=== PATIENT | male | born 1975 | race Caucasian/White ===

== ENCOUNTER 2018-02-28 15:16 | Emergency (ER) | payer OTHER ==
[~2018-02-28] VITALS: Ht 160 cm; Wt 127.3 kg
[2018-02-28] MEDS ORDERED: GABA-533 PO (15:55)
[2018-02-28] MEDS ORDERED: FURO40 PO (15:55)
[2018-02-28] MEDS ORDERED: DULO60CA44 PO (15:55)
[2018-02-28] MEDS ORDERED: LORA1TAB3 PO (15:55)
[2018-02-28] MEDS ORDERED: ARIP15TA2 PO (15:55)
[2018-02-28] MEDS ORDERED: LACT1CAP79 PO (15:55)
[2018-02-28] MEDS ORDERED: OXYB5XL PO (15:55)
[2018-02-28] MEDS ORDERED: TRAZ-144 PO (15:55)
[2018-02-28] MEDS ORDERED: TIZA4TAB4 PO (15:55)
[2018-02-28] MEDS ORDERED: CEPH500 PO (15:55)
[2018-02-28] MEDS ORDERED: DIVA500T35 PO (15:55)
[2018-02-28] MEDS ORDERED: BUPR-93 PO (15:55)
[2018-02-28 17:22] VITALS: BP 126/104
== END 2018-02-28 17:38 | disposition home or self-care (01) ==
LOC: EMS 15:17
DX: F32.9 Major depressive disorder, single episode, unspecified (principal); R45.851 Suicidal ideations; G89.29 Other chronic pain; F17.210 Nicotine dependence, cigarettes, uncomplicated; Z88.1 Allergy status to other antibiotic agents; Z88.2 Allergy status to sulfonamides; Z88.5 Allergy status to narcotic agent; Z88.6 Allergy status to analgesic agent
CPT/HCPCS: 99285

== ENCOUNTER 2018-03-22 21:28 | Emergency (ER) | payer MEDICAID, OTHER ==
[~2018-03-22] VITALS: Ht 177.8 cm; Wt 100.0 kg
[~2018-03-22 21:28] MED LIST: ARIP15TA2 PO; ARIP5TAB8 PO; BUPR-93 PO; CEPH500 PO; DIVA500T35 PO; DULO60CA44 PO; FURO40 PO; GABA-531 PO; GABA-533 PO; LACT1CAP79 PO; LORA1TAB3 PO; OMEP20 PO; OXYB5XL PO; TIZA4TAB4 PO; TRAZ-144 PO
[2018-03-22] MEDS ORDERED: BACITRACIN 0.9 GM PACKET OINTMENT TP ONE (22:45)
[2018-03-23 02:18] VITALS: BP 114/70
== END 2018-03-23 03:50 | disposition home or self-care (01) ==
LOC: EMS 21:29
DX: F43.22 Adjustment disorder with anxiety (principal); S90.424A Blister (nonthermal), right lesser toe(s), initial encounter; F32.9 Major depressive disorder, single episode, unspecified; F17.210 Nicotine dependence, cigarettes, uncomplicated; Z88.2 Allergy status to sulfonamides; Z88.5 Allergy status to narcotic agent; Z88.6 Allergy status to analgesic agent; Z88.8 Allergy status to other drugs, medicaments and biological substances; X58.XXXA Exposure to other specified factors, initial encounter; Y93.89 Activity, other specified; Y92.89 Other specified places as the place of occurrence of the external cause; Y99.8 Other external cause status
CPT/HCPCS: 99285

== ENCOUNTER 2020-10-31 17:05 | Emergency (ER) | payer OTHER ==
[~2020-10-31] VITALS: Ht 160 cm; Wt 86.4 kg
[~2020-10-31 17:05] MED LIST changes: +DIVA-112 PO; -DIVA500T35 PO; +DULO-8 PO; -DULO60CA44 PO; +GABA-1181 PO; +GABA-1201 PO; -GABA-531 PO; -GABA-533 PO; +LORA-1000 PO; -LORA1TAB3 PO; -TIZA4TAB4 PO; +TIZA4TAB6 PO; -TRAZ-144 PO; +TRAZ-252 PO
[2020-10-31 17:41] VITALS: BP 110/58
[2020-10-31] MEDS ORDERED: FentaNYL CITRATE-PF 100 MCG/2 ML VIAL IM ONE (18:45)
== END 2020-10-31 22:09 | disposition home or self-care (01) ==
LOC: EMS 17:06
DX: Q05.9 Spina bifida, unspecified (principal); F32.9 Major depressive disorder, single episode, unspecified; F17.210 Nicotine dependence, cigarettes, uncomplicated; Z88.2 Allergy status to sulfonamides; Z88.5 Allergy status to narcotic agent; Z79.899 Other long term (current) drug therapy
CPT/HCPCS: 96372; 99285; J3010

== ENCOUNTER 2024-09-10 11:08 | Emergency (ER) | payer OTHER ==
[~2024-09-10] VITALS: Ht 154.9 cm; Wt 65.9 kg
[~2024-09-10 11:08] MED LIST changes: -ARIP15TA2 PO; +ARIP15TA27 PO; -ARIP5TAB8 PO; +BUPR-514 PO; -BUPR-93 PO; -CEPH500 PO; +DULO-113 PO; -DULO-8 PO; -FURO40 PO; +FURO40TA6 PO; -GABA-1181 PO; -OMEP20 PO; +OXYB-34 PO; -OXYB5XL PO; +TIZA-330 PO; -TIZA4TAB6 PO
[2024-09-10 11:20] VITALS: TEMP 97.8
[2024-09-10] MEDS ORDERED: GABA-1554 PO (11:24)
[2024-09-10] MEDS ORDERED: POLY510P31 PO (11:24)
[2024-09-10] MEDS ORDERED: DOCU100C33 PO (11:24)
[2024-09-10] MEDS ORDERED: CALC-1271 PO (11:24)
[2024-09-10] MEDS ORDERED: QUET100T34 PO (11:24)
[2024-09-10] MEDS ORDERED: WHEA1POW2 PO (11:24)
[2024-09-10] MEDS ORDERED: BACL20TA PO (11:24)
[2024-09-10] MEDS ORDERED: ARIP5TAB37 PO (11:24)
[2024-09-10] MEDS ORDERED: SENN-395 PO (11:24)
[2024-09-10] MEDS ORDERED: ARIP20TA63 PO (11:24)
[2024-09-10] MEDS ORDERED: MELA5TAB40 PO (11:24)
[2024-09-10 13:37] LABS: ANION GAP 1 mmol/L (8-16); CALCIUM, TOTAL 7.9 mg/dL (8.8-10.5); CARBON DIOXIDE 31 mmol/L (22-29); CHLORIDE 104 mmol/L (98-107); CREATININE 0.74 mg/dL (0.60-1.30); GLOMERULAR FILTR. RATE CALC > 60 mL/min (>60); GLUCOSE,RANDOM 160 mg/dL (70-110); POTASSIUM 3.3 mmol/L (3.5-5.1); SODIUM SERUM 136 mmol/L (136-145); UREA NITROGEN, BLOOD 17 mg/dL (7-18)
[2024-09-10 13:44] LABS: BASOPHILS % (AUTO) 0.5 % (0.0-2.0); EOSINOPHILS % (AUTO) 2.2 % (1.0-6.0); HEMATOCRIT 41.8 % (41-53); HEMOGLOBIN 13.5 g/dL (13.5-17.5); LYMPHOCYTES # (AUTO) 2.1 K/uL (1.0-4.8); LYMPHOCYTES % (AUTO) 43.7 % (22.0-44.0); MEAN CORPUSCULAR HGB CONC 32.3 G/dL (31.0-37.0); MEAN CORPUSCULAR VOLUME 96 fL (80-100); MONOCYTES # (AUTO) 0.3 K/uL (0.1-1.0); NEUTROPHILS # (AUTO) 2.3 K/uL (1.8-7.7); NEUTROPHILS % (AUTO) 46.6 % (40.0-70.0); PLATELET COUNT (AUTO) 200 K/uL (150-450); RED BLOOD CELL COUNT(AUTO) 4.35 MIL/uL (4.50-5.90); RED CELL DISTRIBUTION WIDTH 14.4 % (11.5-14.5); WHITE BLOOD COUNT (AUTO) 4.8 K/uL (4.5-11.0)
[2024-09-10 14:38] LABS: APPEARANCE,URINE HAZY (CLEAR); BILIRUBIN,URINE NEGATIVE (NEGATIVE); COLOR,URINE LIGHT YELLOW (YELLOW); GLUCOSE, URINE (UA) NEGATIVE (NEGATIVE); KETONES,URINE NEGATIVE (NEGATIVE); LEUKOCYTE ESTERASE ,URINE SMALL (NEGATIVE); NITRATE,URINE NEGATIVE (NEGATIVE); OCCULT BLOOD,URINE NEGATIVE (NEGATIVE); PH,URINE 5.5 (5.0-8.0); PROTEIN,URINE TRACE mg/dL (NEGATIVE); SPECIFIC GRAVITIY, URINE 1.013 (1.003-1.030)
[2024-09-10 15:25] LABS: BACTERIA,URINE Many /HPF (None Seen); RBC,URINE 0-2 /HPF (0-2); SQUAMOUS EPITHELIAL CELL,UR Few /LPF (None Seen)
[2024-09-10] MEDS ORDERED: CEFU500T41 PO (15:56)
[2024-09-10] MEDS: POTASSIUM CHLORIDE 20 MEQ ER TABLET PO ONE (16:20)
[2024-09-10] MEDS: CEFUROXIME AXETIL 250 MG TABLET PO ONE (16:20)
[2024-09-10 16:28] VITALS: BP 110/69; PULSE 88; RESP 18; O2SAT 99
== END 2024-09-10 16:38 | disposition home or self-care (01) ==
LOC: EMS 11:08
DX: N30.90 Cystitis, unspecified without hematuria (principal); E87.6 Hypokalemia; E11.9 Type 2 diabetes mellitus without complications; F17.210 Nicotine dependence, cigarettes, uncomplicated; F31.9 Bipolar disorder, unspecified; G47.30 Sleep apnea, unspecified; Q05.9 Spina bifida, unspecified; Z88.1 Allergy status to other antibiotic agents; Z88.2 Allergy status to sulfonamides; Z88.5 Allergy status to narcotic agent; Z88.6 Allergy status to analgesic agent; Z87.440 Personal history of urinary (tract) infections; Z79.899 Other long term (current) drug therapy
CPT/HCPCS: 80048; 81001; 82962; 85025; 87086; 99283

== ENCOUNTER 2024-11-23 05:15 | Emergency (ER) | payer OTHER ==
[~2024-11-23] VITALS: Ht 160 cm; Wt 104.5 kg
[~2024-11-23 05:15] MED LIST changes: -ARIP15TA27 PO; +ARIP20TA63 PO; +ARIP5TAB37 PO; +BACL20TA PO; -BUPR-514 PO; +CALC-1271 PO; +DOCU100C33 PO; -GABA-1201 PO; +GABA-1554 PO; -LACT1CAP79 PO; -LORA-1000 PO; +MELA5TAB40 PO; -OXYB-34 PO; +POLY510P31 PO; +SENN-395 PO; +SULF-261 PO; -TIZA-330 PO; -TRAZ-252 PO; +WHEA1POW2 PO
[2024-11-23 05:19] VITALS: TEMP 98.3
[2024-11-23] MEDS: LIDOCAINE/PF 1% 2 ML VIAL IM ONE (06:36)
[2024-11-23] MEDS: CefTRIAXone SODIUM 1 GM/VIAL IM ONE (06:36)
[2024-11-23 07:42] LABS: APPEARANCE,URINE TURBID (CLEAR); BILIRUBIN,URINE NEGATIVE (NEGATIVE); COLOR,URINE YELLOW (YELLOW); GLUCOSE, URINE (UA) NEGATIVE (NEGATIVE); KETONES,URINE TRACE mg/dL (NEGATIVE); LEUKOCYTE ESTERASE ,URINE LARGE (NEGATIVE); NITRATE,URINE NEGATIVE (NEGATIVE); OCCULT BLOOD,URINE MODERATE (NEGATIVE); PROTEIN,URINE 300-600,SEE CONFIRM mg/dL (NEGATIVE); SPECIFIC GRAVITIY, URINE 1.031 (1.003-1.030)
[2024-11-23 07:55] LABS: SULFOSALICYLIC ACID,URINE 4+ (Negative); TRIPLE PHOSPHATE CRYSTAL,UR Few /LPF (None Seen)
[2024-11-23 07:56] LABS: WBC,URINE 51-100 /HPF (0-5)
[2024-11-23 07:57] LABS: BACTERIA,URINE Many /HPF (None Seen)
[2024-11-23 08:52] VITALS: BP 108/67; PULSE 87; RESP 18; O2SAT 99
[2024-11-23] MEDS ORDERED: NYST15PO3 TP (09:09)
[2024-11-23] MEDS ORDERED: CEPH-558 PO (09:09)
[2024-11-23] MEDS: CefTRIAXone 1 GM/DEXTROSE 50 ML IV ONE (09:17)
== END 2024-11-23 09:43 | disposition left against medical advice (07) ==
LOC: EMS 05:15
DX: N39.0 Urinary tract infection, site not specified (principal); E11.9 Type 2 diabetes mellitus without complications; G47.30 Sleep apnea, unspecified; G89.29 Other chronic pain; Q05.9 Spina bifida, unspecified; F17.210 Nicotine dependence, cigarettes, uncomplicated; Z87.440 Personal history of urinary (tract) infections; Z88.1 Allergy status to other antibiotic agents; Z88.2 Allergy status to sulfonamides; Z88.5 Allergy status to narcotic agent; Z88.6 Allergy status to analgesic agent
CPT/HCPCS: 99283; 81001; 87086; 96372; J0696; J3490; 81002

== ENCOUNTER 2025-06-16 12:03 | Inpatient (IN) | payer OTHER ==
[~2025-06-16] VITALS: Ht 160 cm; Wt 90.3 kg
[~2025-06-16 12:03] MED LIST changes: +CEPH-558 PO; -DULO-113 PO; +DULO60CA98 PO; +NYST15PO3 TP
[2025-06-16] MEDS ORDERED: 0.9% SODIUM CHLORIDE 10 ML SYRINGE IVP PRN (12:30)
[2025-06-16] MEDS ORDERED: QUET200T PO (12:30)
[2025-06-16] MEDS ORDERED: ARIP15TA27 PO (12:30)
[2025-06-16] MEDS ORDERED: METH1TAB66 PO (12:30)
[2025-06-16] MEDS ORDERED: QUET100T34 PO (12:38)
[2025-06-16] MEDS ORDERED: NYST15CR TP (12:38)
[2025-06-16 13:11] LABS: PLATELET COUNT (AUTO) 179 K/uL (150-450); RED BLOOD CELL COUNT(AUTO) 4.59 MIL/uL (4.50-5.90); RED CELL DISTRIBUTION WIDTH 13.5 % (11.5-14.5); WHITE BLOOD COUNT (AUTO) 13.0 K/uL (4.5-11.0)
[2025-06-16] MEDS: SODIUM CHLORIDE 0.9% 2,100 ML IV ONE (13:16)
[2025-06-16 13:19] LABS: CALCIUM, TOTAL 8.2 mg/dL (8.8-10.5); CREATININE 1.18 mg/dL (0.60-1.30); GLOMERULAR FILTR. RATE CALC > 60 mL/min (>60); GLUCOSE,RANDOM 104 mg/dL (70-110); SODIUM SERUM 133 mmol/L (136-145); UREA NITROGEN, BLOOD 22 mg/dL (7-18)
[2025-06-16] MEDS: CefTRIAXone 1 GM/DEXTROSE 50 ML IV ONE (13:24)
[2025-06-16] MEDS: BACITRACIN 0.9 GM PACKET OINTMENT TP ONE (13:24)
[2025-06-16] MEDS: PERTUSS(ACELL),DIPH,TET/PF 0.5 ML SYRINGE [ADULT] IM. ONE (13:24)
[2025-06-16 13:29] LABS: TROPONIN I-HIGH SENSITIVITY 57 ng/L (<76)
[2025-06-16 14:06] LABS: LACTIC ACID 1.3 mmol/L (0.4-2.0)
[2025-06-16] MEDS ORDERED: HYDROCODONE/ACETAMINOPHEN 5-325 MG TABLET PO ONE (14:45)
[2025-06-16 15:15] LABS: APPEARANCE,URINE TURBID (CLEAR); GLUCOSE, URINE (UA) NEGATIVE (NEGATIVE); LEUKOCYTE ESTERASE ,URINE LARGE (NEGATIVE); NITRATE,URINE NEGATIVE (NEGATIVE); OCCULT BLOOD,URINE LARGE (NEGATIVE); SPECIFIC GRAVITIY, URINE 1.024 (1.003-1.030)
[2025-06-16] MEDS: ACETAMINOPHEN 500 MG TABLET PO ONE (15:17)
[2025-06-16 15:59] LABS: SULFOSALICYLIC ACID,URINE 3+ (Negative)
[2025-06-16 16:02] LABS: SQUAMOUS EPITHELIAL CELL,UR Few /LPF (None Seen)
[2025-06-16 16:16] LABS: GLUCOMETER DEV NAME(LOC) ERT.7; GLUCOSE,POINT OF CARE 100 MG/DL (70-110)
[2025-06-16] MEDS ORDERED: MAGNESIUM HYDROXIDE SUSPENSION 30 ML UDCUP PO PRN (16:45)
[2025-06-16] MEDS ORDERED: BISACODYL 10 MG RECTAL RECTAL SUPPOSITORY PR PRN (16:45)
[2025-06-16] MEDS ORDERED: ONDANSETRON HCL 4 MG/2 ML VIAL IVP PRN (16:45)
[2025-06-16] MEDS: *CLINICAL-LEVOFLOXACIN IVPB DOSING CLINICAL ONE (16:59)
[2025-06-16] MEDS: SODIUM CHLORIDE 0.9% 1,000 ML IV ONE ×3 (17:04→18:13)
[2025-06-16] MEDS ORDERED: NOREPINEPHRINE 8 MG/0.9 % NACL 250 ML IV ONE (17:59)
[2025-06-16] MEDS ORDERED: NOREPINEPHRINE 8 MG/0.9 % NACL 250 ML IV PRN (18:00)
[2025-06-16] MEDS: NOREPINEPHRINE 8 MG/0.9 % NACL 250 ML IV PRN (18:08)
[2025-06-16] MEDS: DOCUSATE SODIUM 100 MG CAPSULE PO SCH (20:20)
[2025-06-16 21:00] VITALS: BP 104/66; PULSE 83; PULSE 89; RESP 16; TEMP 97.4; O2SAT 95
[2025-06-17] VITALS: BP 100/64; PULSE 75; PULSE 79; RESP 16; TEMP 97.6; O2SAT 97
[2025-06-17] MEDS: HEPARIN SODIUM,PORCINE 5,000 UNITS/ML VIAL SQ SCH (00:17)
[2025-06-17] MEDS: ACETAMINOPHEN 325 MG TABLET PO PRN (01:03)
[2025-06-17 04:00] VITALS: BP 100/64; PULSE 85; PULSE 87; RESP 16; TEMP 97.6; O2SAT 95
[2025-06-17] MEDS: MIDODRINE HCL 2.5 MG TABLET PO SCH (07:18)
[2025-06-17] MEDS: KETOROLAC TROMETHAMINE 30 MG/ML VIAL IVP ONE (07:18)
[2025-06-17] MEDS: PIPERACILLIN/TAZO 3.375 GM/D5W 50 ML IV SCH (07:19)
[2025-06-17] MEDS ORDERED: SODIUM CHLORIDE 0.9% 250 ML IV ONE (07:43)
[2025-06-17 08:00] VITALS: BP 115/63; PULSE 93; RESP 12; TEMP 97.1; O2SAT 92
[2025-06-17 08:59] LABS: PLATELET COUNT (AUTO) 153 K/uL (150-450); RED BLOOD CELL COUNT(AUTO) 4.13 MIL/uL (4.50-5.90); RED CELL DISTRIBUTION WIDTH 13.8 % (11.5-14.5); WHITE BLOOD COUNT (AUTO) 9.8 K/uL (4.5-11.0)
[2025-06-17 09:06] LABS: CALCIUM, TOTAL 7.1 mg/dL (8.8-10.5); CREATININE 0.74 mg/dL (0.60-1.30); GLOMERULAR FILTR. RATE CALC > 60 mL/min (>60); GLUCOSE,RANDOM 80 mg/dL (70-110); SODIUM SERUM 137 mmol/L (136-145); UREA NITROGEN, BLOOD 18 mg/dL (7-18)
[2025-06-17] MEDS: PANTOPRAZOLE SODIUM 40 MG DR TABLET PO SCH (09:07)
[2025-06-17] MEDS: LEVOFLOXACIN 750 MG/D5% WATER 150 ML IV SCH (09:07)
[2025-06-17 12:00] LABS: GLUCOMETER DEV NAME(LOC) ICUN.6; GLUCOSE,POINT OF CARE 82 MG/DL (70-110)
[2025-06-17 12:42] VITALS: BP 97/70; PULSE 82; RESP 17; TEMP 97.5; O2SAT 96
[2025-06-17 12:46] LABS: PH,URINE DRUG SCREEN 7.0 (5.0-8.0)
[2025-06-17 12:59] LABS: ALCOHOL, URINE DRUG SCREEN NEGATIVE (NEGATIVE); AMPHET/METH SCREEN,URINE NEGATIVE (NEGATIVE); BARBITURATE SCREEN, URINE NEGATIVE (NEGATIVE); CANNABINOID SCREEN,URINE NEGATIVE (NEGATIVE); COCAINE SCREEN,URINE NEGATIVE (NEGATIVE); METHADONE SCREEN, URINE NEGATIVE (NEGATIVE)
[2025-06-17] MEDS ORDERED: SODIUM CHLORIDE 0.9% 500 ML IV ONE (13:02)
[2025-06-17] MEDS: MORPHINE SULFATE 2 MG/ML SYRINGE IVP PRN (14:45)
[2025-06-17 15:33] VITALS: BP 109/85; PULSE 82; RESP 18; TEMP 98.2; O2SAT 97
[2025-06-17 20:22] VITALS: BP 96/64; PULSE 93; RESP 18; TEMP 97.7; O2SAT 97
[2025-06-18 00:11] VITALS: BP 96/55; PULSE 101; RESP 18; TEMP 97.7; O2SAT 95
[2025-06-18 03:24] VITALS: BP 92/61; PULSE 94; RESP 18; TEMP 97.7; O2SAT 97
[2025-06-18 07:55] VITALS: BP 133/79; PULSE 110; RESP 19; TEMP 97.7; O2SAT 98
[2025-06-18 09:52] LABS: PLATELET COUNT (AUTO) 169 K/uL (150-450); RED BLOOD CELL COUNT(AUTO) 4.21 MIL/uL (4.50-5.90); RED CELL DISTRIBUTION WIDTH 13.5 % (11.5-14.5); WHITE BLOOD COUNT (AUTO) 5.9 K/uL (4.5-11.0)
[2025-06-18 09:57] LABS: CALCIUM, TOTAL 7.7 mg/dL (8.8-10.5); CREATININE 0.76 mg/dL (0.60-1.30); GLOMERULAR FILTR. RATE CALC > 60 mL/min (>60); GLUCOSE,RANDOM 115 mg/dL (70-110); SODIUM SERUM 142 mmol/L (136-145); UREA NITROGEN, BLOOD 10 mg/dL (7-18)
[2025-06-18] MEDS: GABAPENTIN 400 MG CAPSULE PO PRN (10:52)
[2025-06-18] MEDS: DULoxetine HCL 60 MG CAPSULE PO SCH (10:52)
[2025-06-18 13:25] VITALS: BP 125/75; PULSE 119; RESP 18; TEMP 98.2; O2SAT 97
[2025-06-18] MEDS: BACLOFEN 10 MG TABLET PO SCH (14:53)
[2025-06-18 19:58] VITALS: BP 109/75; PULSE 95; RESP 18; TEMP 98.1; O2SAT 96
[2025-06-18] MEDS: ZOLPIDEM TARTRATE 5 MG TABLET PO PRN (22:57)
[2025-06-19 00:14] VITALS: BP 125/75; PULSE 77; RESP 17; TEMP 97.3; O2SAT 95
[2025-06-19 03:32] VITALS: BP 102/62; PULSE 75; RESP 18; TEMP 97.7; O2SAT 97
[2025-06-19 06:40] LABS: PLATELET COUNT (AUTO) 177 K/uL (150-450); RED BLOOD CELL COUNT(AUTO) 3.55 MIL/uL (4.50-5.90); RED CELL DISTRIBUTION WIDTH 13.7 % (11.5-14.5); WHITE BLOOD COUNT (AUTO) 5.1 K/uL (4.5-11.0)
[2025-06-19 08:37] VITALS: BP 103/74; PULSE 87; RESP 18; TEMP 97.8; O2SAT 95
[2025-06-19] MEDS: NICOTINE 14 MG/24 HOUR PATCH TD SCH (08:48)
[2025-06-19 11:50] VITALS: BP 93/69; PULSE 98; RESP 18; TEMP 98; O2SAT 97
[2025-06-19] MEDS ORDERED: AMOX-457 PO (13:49)
[2025-06-19 16:07] VITALS: BP 97/67; PULSE 83; RESP 18; TEMP 98; O2SAT 96
== END 2025-06-19 18:45 | disposition home or self-care (01) | DRG 720 ==
LOC: EMS 12:07 → EDH 16:00 → ICU 21:00 → 5N 06-17 12:20
PROVIDERS: ADMIT Internal Medicine; ATTEND Internal Medicine
DX: A41.9 Sepsis, unspecified organism (principal); J96.01 Acute respiratory failure with hypoxia; J69.0 Pneumonitis due to inhalation of food and vomit; G93.41 Metabolic encephalopathy; G82.20 Paraplegia, unspecified; N31.2 Flaccid neuropathic bladder, not elsewhere classified; F31.9 Bipolar disorder, unspecified; G89.29 Other chronic pain; E11.65 Type 2 diabetes mellitus with hyperglycemia; F17.210 Nicotine dependence, cigarettes, uncomplicated; G47.33 Obstructive sleep apnea (adult) (pediatric); E78.5 Hyperlipidemia, unspecified; L03.115 Cellulitis of right lower limb; Z87.440 Personal history of urinary (tract) infections; Z88.3 Allergy status to other anti-infective agents; Z88.2 Allergy status to sulfonamides; Z88.6 Allergy status to analgesic agent; Z88.5 Allergy status to narcotic agent; Z79.899 Other long term (current) drug therapy; Q05.9 Spina bifida, unspecified
CPT/HCPCS: 51701; 51702; 71045; 80048; 80307; 81001; 81002; 82962; 83036; 83605; 84145; 84484; 85025; 85610; 87040; 87081; 87086; 90715; 92610; 93005; 93971; 97162; 99291; J0696; J1630; J1644; J1885; J1956; J2270; J2543; J7040; J7050; 36415-L1; 36415-TC

== ENCOUNTER 2025-08-13 11:40 | Inpatient (IN) | payer OTHER ==
[~2025-08-13] VITALS: Ht 160 cm; Wt 97.7 kg
[~2025-08-13 11:40] MED LIST changes: +AMOX-457 PO; +ARIP15TA27 PO; -ARIP20TA63 PO; -ARIP5TAB37 PO; -CEPH-558 PO; -DIVA-112 PO; +DULO60CA73 PO; -DULO60CA98 PO; +METH1TAB66 PO; +NYST15CR TP; -NYST15PO3 TP; +QUET100T34 PO; -SULF-261 PO
[2025-08-13 12:25] LABS: GLUCOMETER DEV NAME(LOC) ER.7; GLUCOSE,POINT OF CARE 127 MG/DL (70-110)
[2025-08-13 12:57] LABS: PLATELET COUNT (AUTO) 211 K/uL (150-450); RED BLOOD CELL COUNT(AUTO) 4.49 MIL/uL (4.50-5.90); RED CELL DISTRIBUTION WIDTH 13.0 % (11.5-14.5); WHITE BLOOD COUNT (AUTO) 6.3 K/uL (4.5-11.0)
[2025-08-13 13:04] LABS: CALCIUM, TOTAL 8.6 mg/dL (8.8-10.5); CREATININE 0.70 mg/dL (0.60-1.30); GLOMERULAR FILTR. RATE CALC > 60 mL/min (>60); GLUCOSE,RANDOM 122 mg/dL (70-110); SODIUM SERUM 135 mmol/L (136-145); UREA NITROGEN, BLOOD 13 mg/dL (7-18)
[2025-08-13 13:13] LABS: LACTIC ACID 0.7 mmol/L (0.4-2.0)
[2025-08-13 13:22] LABS: ASPARTATE AMINOTRANSFERASE 131.0 U/L (15-37); TOTAL PROTEIN, SERUM 7.7 g/dL (6.4-8.2)
[2025-08-13] MEDS: *CLINICAL-MEROPENEM DOSING CLINICAL ONE (13:28)
[2025-08-13] MEDS ORDERED: MORPHINE SULFATE 2 MG/ML SYRINGE IVP ONE (14:15)
[2025-08-13] MEDS: ACETAMINOPHEN 500 MG TABLET PO ONE (14:28)
[2025-08-13] MEDS: SODIUM CHLORIDE 0.9% 1,000 ML IV ONE (14:29)
[2025-08-13] MEDS: MEROPENEM 1 GM in SODIUM CHLORIDE 0.9% 50 ML IV ONE (14:29)
[2025-08-13 14:39] LABS: APPEARANCE,URINE CLEAR (CLEAR); GLUCOSE, URINE (UA) NEGATIVE (NEGATIVE); LEUKOCYTE ESTERASE ,URINE MODERATE (NEGATIVE); NITRATE,URINE POSITIVE (NEGATIVE); OCCULT BLOOD,URINE TRACE (NEGATIVE); SPECIFIC GRAVITIY, URINE 1.009 (1.003-1.030)
[2025-08-13] MEDS ORDERED: ONDANSETRON HCL 4 MG/2 ML VIAL IVP PRN (17:00)
[2025-08-13 20:21] VITALS: BP 114/87; PULSE 96; RESP 18; TEMP 98.1; O2SAT 95
[2025-08-13] MEDS: DOCUSATE SODIUM 100 MG CAPSULE PO SCH (21:17)
[2025-08-13] MEDS: ACETAMINOPHEN 325 MG TABLET PO PRN (21:35)
[2025-08-13] MEDS: PIPERACILLIN/TAZO 3.375 GM/D5W 50 ML IV SCH (21:52)
[2025-08-13] MEDS ORDERED: MEROPENEM 1 GM in SODIUM CHLORIDE 0.9% 50 ML IV SCH (22:00)
[2025-08-13] MEDS ORDERED: SENNOSIDES/DOCUSATE SODIUM 8.6-50 MG TABLET PO PRN (23:00)
[2025-08-13 23:31] LABS: GLUCOMETER DEV NAME(LOC) 6S.2; GLUCOSE,POINT OF CARE 94 MG/DL (70-110)
[2025-08-13] MEDS ORDERED: GABAPENTIN 100 MG CAPSULE PO PRN (23:45)
[2025-08-13] MEDS: HEPARIN SODIUM,PORCINE 5,000 UNITS/ML VIAL SQ SCH (23:52)
[2025-08-13] MEDS: GABAPENTIN 400 MG CAPSULE PO PRN (23:53)
[2025-08-13] MEDS: MELATONIN 5 MG TABLET PO PRN (23:53)
[2025-08-14 04:06] VITALS: BP 113/78; PULSE 85; RESP 18; TEMP 97.5; O2SAT 97
[2025-08-14 06:24] LABS: PLATELET COUNT (AUTO) 217 K/uL (150-450); RED BLOOD CELL COUNT(AUTO) 4.28 MIL/uL (4.50-5.90); RED CELL DISTRIBUTION WIDTH 13.2 % (11.5-14.5); WHITE BLOOD COUNT (AUTO) 5.3 K/uL (4.5-11.0)
[2025-08-14 06:43] LABS: CALCIUM, TOTAL 8.0 mg/dL (8.8-10.5); CREATININE 0.70 mg/dL (0.60-1.30); GLOMERULAR FILTR. RATE CALC > 60 mL/min (>60); GLUCOSE,RANDOM 86 mg/dL (70-110); SODIUM SERUM 140 mmol/L (136-145); UREA NITROGEN, BLOOD 14 mg/dL (7-18)
[2025-08-14 08:00] LABS: GLUCOMETER DEV NAME(LOC) 6S.2; GLUCOSE,POINT OF CARE 102 MG/DL (70-110)
[2025-08-14] MEDS: FUROSEMIDE 40 MG TABLET PO SCH (08:16)
[2025-08-14] MEDS: METHENAMINE HIPPURATE 1 GM TABLET PO SCH (08:16)
[2025-08-14] MEDS: BACLOFEN 10 MG TABLET PO SCH (08:16)
[2025-08-14] MEDS: DULoxetine HCL 60 MG CAPSULE PO SCH (08:16)
[2025-08-14 08:20] VITALS: BP 99/72; PULSE 81; RESP 18; TEMP 97.7; O2SAT 95
[2025-08-14] MEDS ORDERED: SODIUM CHLORIDE 0.9% 500 ML IV ONE ×2 (10:20→23:24)
[2025-08-14 15:56] VITALS: BP 127/87; PULSE 92; RESP 18; TEMP 97.7; O2SAT 97
[2025-08-14 20:27] VITALS: BP 92/58; PULSE 72; RESP 18; TEMP 97.5; O2SAT 94
[2025-08-14] MEDS ORDERED: NALOXONE HCL 1 MG/ML 2 ML SYRINGE IVP PRN (20:30)
[2025-08-15 00:04] VITALS: BP 109/71; PULSE 101; RESP 20; TEMP 97.9; O2SAT 100
[2025-08-15] MEDS: MELATONIN 5 MG TABLET PO SCH (00:09)
[2025-08-15 04:15] VITALS: BP 126/91; PULSE 110; RESP 18; TEMP 98.4; O2SAT 93
[2025-08-15 08:00] VITALS: BP 115/82; PULSE 90; RESP 18; TEMP 97.7; O2SAT 98
[2025-08-15] MEDS: NICOTINE 14 MG/24 HOUR PATCH TD SCH (10:40)
[2025-08-15 15:17] VITALS: BP 106/78; PULSE 114; RESP 18; TEMP 98.1; O2SAT 99
[2025-08-15 20:00] VITALS: BP 105/72; PULSE 105; RESP 20; TEMP 98.2; O2SAT 96
[2025-08-16 04:51] VITALS: BP 106/75; PULSE 85; RESP 18; TEMP 98.2; O2SAT 93
[2025-08-16 08:16] VITALS: BP 100/60; PULSE 80; RESP 20; TEMP 97.9; O2SAT 20; O2SAT 98
[2025-08-16 11:14] VITALS: BP 102/68; PULSE 84; RESP 20; TEMP 97.9; O2SAT 97
[2025-08-16] MEDS: *CLINICAL-MEROPENEM DOSING CLINICAL ONE (12:58)
[2025-08-16] MEDS: MEROPENEM 1 GM in SODIUM CHLORIDE 0.9% 50 ML IV SCH (15:25)
[2025-08-16 15:42] VITALS: BP 96/54; PULSE 86; RESP 20; TEMP 97.9; O2SAT 94
[2025-08-16 20:00] VITALS: BP 103/67; PULSE 100; RESP 20; TEMP 97.5; O2SAT 96
[2025-08-17 04:00] VITALS: BP 101/70; PULSE 87; RESP 20; TEMP 97.3; O2SAT 97
[2025-08-17 08:00] VITALS: BP 120/88; PULSE 124; RESP 20; TEMP 97.7; O2SAT 95
[2025-08-17 12:28] VITALS: BP 107/81; PULSE 121; RESP 18; O2SAT 94
[2025-08-17] MEDS ORDERED: IOHEXOL 350 MG/ML 100 ML VIAL ONE (15:18)
[2025-08-17] MEDS ORDERED: SODIUM CHLORIDE 0.9% 100 ML ONE (15:18)
[2025-08-17] MEDS ORDERED: 0.9% SODIUM CHLORIDE 10 ML SYRINGE IVP ONE (15:18)
[2025-08-17 16:00] VITALS: BP 100/67; PULSE 98; RESP 20; TEMP 97.5; O2SAT 96
== END 2025-08-17 21:21 | DRG 466 ==
LOC: EMS 11:44 → EDH 16:46 → 6S 19:03
PROVIDERS: ADMIT Internal Medicine; ATTEND Internal Medicine
PROC: 05HC33Z Insertion of Infusion Device into Left Basilic Vein, Percutaneous Approach (ICD-10-PCS; principal; 2025-08-16)
PROC: B54NZZA Ultrasonography of Left Upper Extremity Veins, Guidance (ICD-10-PCS; 2025-08-16)
DX: T83.518A Infection and inflammatory reaction due to other urinary catheter, initial encounter (principal); Q05.4 Unspecified spina bifida with hydrocephalus; E11.9 Type 2 diabetes mellitus without complications; F31.9 Bipolar disorder, unspecified; N12 Tubulo-interstitial nephritis, not specified as acute or chronic; G89.29 Other chronic pain; N31.9 Neuromuscular dysfunction of bladder, unspecified; R74.8 Abnormal levels of other serum enzymes; Y84.6 Urinary catheterization as the cause of abnormal reaction of the patient, or of later complication, without mention of misadventure at the time of the procedure; Z99.3 Dependence on wheelchair; Z87.440 Personal history of urinary (tract) infections; Z87.891 Personal history of nicotine dependence; Z88.2 Allergy status to sulfonamides; Z88.3 Allergy status to other anti-infective agents; Z88.5 Allergy status to narcotic agent; Z88.6 Allergy status to analgesic agent; Y92.89 Other specified places as the place of occurrence of the external cause
CPT/HCPCS: 36245; 36569; 71045; 71275; 76705; 76937; 80048; 80076; 81001; 82962; 83605; 83735; 85025; 85379; 85610; 87077; 87081; 87086; 87186; 93005; 99285; J1171; J1644; J2185; J2543; J7030; J7040; J7050; 36415-L1; 36415-TC

== ENCOUNTER 2025-09-10 09:42 | Inpatient (IN) | payer OTHER ==
[~2025-09-10] VITALS: Ht 160 cm; Wt 104.5 kg
[~2025-09-10 09:42] MED LIST changes: -AMOX-457 PO
[2025-09-10 10:38] LABS: PLATELET COUNT (AUTO) 206 K/uL (150-450); RED BLOOD CELL COUNT(AUTO) 4.67 MIL/uL (4.50-5.90); RED CELL DISTRIBUTION WIDTH 14.2 % (11.5-14.5); WHITE BLOOD COUNT (AUTO) 3.5 K/uL (4.5-11.0)
[2025-09-10 10:48] LABS: CALCIUM, TOTAL 8.7 mg/dL (8.8-10.5); CREATININE 0.64 mg/dL (0.60-1.30); GLOMERULAR FILTR. RATE CALC > 60 mL/min (>60); GLUCOSE,RANDOM 127 mg/dL (70-110); SODIUM SERUM 142 mmol/L (136-145); UREA NITROGEN, BLOOD 20 mg/dL (7-18)
[2025-09-10 10:52] LABS: ASPARTATE AMINOTRANSFERASE 20 U/L (15-37); TOTAL PROTEIN, SERUM 7.5 g/dL (6.4-8.2)
[2025-09-10 10:58] LABS: LACTIC ACID 1.3 mmol/L (0.4-2.0)
[2025-09-10] MEDS: SODIUM CHLORIDE 0.9% 1,000 ML IV ONE (11:32)
[2025-09-10] MEDS: ACETAMINOPHEN 500 MG TABLET PO ONE (11:33)
[2025-09-10] MEDS: PIPERACILLIN/TAZO 3.375 GM/D5W 50 ML IV ONE (11:41)
[2025-09-10] MEDS: MORPHINE SULFATE 2 MG/ML SYRINGE IVP ONE (12:21)
[2025-09-10 12:25] LABS: GLUCOMETER DEV NAME(LOC) ER.7; GLUCOSE,POINT OF CARE 72 MG/DL (70-110)
[2025-09-10 12:37] LABS: APPEARANCE,URINE HAZY (CLEAR); GLUCOSE, URINE (UA) NEGATIVE (NEGATIVE); LEUKOCYTE ESTERASE ,URINE LARGE (NEGATIVE); NITRATE,URINE POSITIVE (NEGATIVE); OCCULT BLOOD,URINE NEGATIVE (NEGATIVE); SPECIFIC GRAVITIY, URINE 1.012 (1.003-1.030)
[2025-09-10 12:51] LABS: SQUAMOUS EPITHELIAL CELL,UR Moderate /LPF (None Seen)
[2025-09-10] MEDS: *CLINICAL-MEROPENEM DOSING CLINICAL ONE (13:59)
[2025-09-10] MEDS ORDERED: 0.9% SODIUM CHLORIDE 10 ML SYRINGE IVP PRN (14:00)
[2025-09-10] MEDS ORDERED: ONDANSETRON HCL 4 MG/2 ML VIAL IVP PRN (14:15)
[2025-09-10] MEDS ORDERED: SENNOSIDES/DOCUSATE SODIUM 8.6-50 MG TABLET PO PRN (14:15)
[2025-09-10 14:25] LABS: CALCIUM, TOTAL 8.1 mg/dL (8.8-10.5); CREATININE 0.79 mg/dL (0.60-1.30); GLOMERULAR FILTR. RATE CALC > 60 mL/min (>60); GLUCOSE,RANDOM 126 mg/dL (70-110); SODIUM SERUM 143 mmol/L (136-145); UREA NITROGEN, BLOOD 17 mg/dL (7-18)
[2025-09-10 14:29] LABS: ASPARTATE AMINOTRANSFERASE 20 U/L (15-37); LACTATE DEHYDROGENASE 172 U/L (85-227); TOTAL PROTEIN, SERUM 6.9 g/dL (6.4-8.2)
[2025-09-10] MEDS: SODIUM CHLORIDE 0.9% 3,150 ML IV ONE (15:21)
[2025-09-10] MEDS: MEROPENEM 1 GM in SODIUM CHLORIDE 0.9% 50 ML IV ONE (15:29)
[2025-09-10] MEDS: HEPARIN SODIUM,PORCINE 5,000 UNITS/ML VIAL SQ SCH (15:31)
[2025-09-10] MEDS: BACLOFEN 10 MG TABLET PO SCH (15:35)
[2025-09-10 17:30] VITALS: BP 114/86; PULSE 81; RESP 18; TEMP 98.2; O2SAT 99
[2025-09-10] MEDS: ACETAMINOPHEN 325 MG TABLET PO PRN (18:00)
[2025-09-10 20:11] VITALS: BP 127/72; PULSE 78; RESP 18; TEMP 99.1; O2SAT 96
[2025-09-10] MEDS: CALCIUM OYSTER SHELL 250 MG-VIT D3 125 UNITS[3.125MCG] TABLET PO SCH (20:19)
[2025-09-10] MEDS: METHENAMINE HIPPURATE 1 GM TABLET PO SCH (20:20)
[2025-09-10] MEDS: MELATONIN 5 MG TABLET PO SCH (20:20)
[2025-09-10] MEDS: MORPHINE SULFATE 4 MG/ML SYRINGE IVP PRN (20:22)
[2025-09-10] MEDS ORDERED: SODIUM CHLORIDE 0.9% 500 ML IV ONE (23:14)
[2025-09-10] MEDS: MEROPENEM 1 GM in SODIUM CHLORIDE 0.9% 50 ML IV SCH (23:35)
[2025-09-11 05:05] VITALS: BP 105/67; PULSE 77; RESP 18; TEMP 97.7; O2SAT 97
[2025-09-11 06:03] LABS: PLATELET COUNT (AUTO) 198 K/uL (150-450); RED BLOOD CELL COUNT(AUTO) 4.29 MIL/uL (4.50-5.90); RED CELL DISTRIBUTION WIDTH 14.4 % (11.5-14.5); WHITE BLOOD COUNT (AUTO) 4.2 K/uL (4.5-11.0)
[2025-09-11 06:21] LABS: CALCIUM, TOTAL 8.3 mg/dL (8.8-10.5); CREATININE 0.64 mg/dL (0.60-1.30); GLOMERULAR FILTR. RATE CALC > 60 mL/min (>60); GLUCOSE,RANDOM 88 mg/dL (70-110); SODIUM SERUM 140 mmol/L (136-145); UREA NITROGEN, BLOOD 19 mg/dL (7-18)
[2025-09-11 09:00] VITALS: BP 134/75; PULSE 111; RESP 18; TEMP 97.7; O2SAT 98
[2025-09-11] MEDS: GABAPENTIN 400 MG CAPSULE PO PRN (09:10)
[2025-09-11] MEDS: FUROSEMIDE 40 MG TABLET PO SCH (09:11)
[2025-09-11] MEDS: DOCUSATE SODIUM 100 MG CAPSULE PO SCH (09:12)
[2025-09-11] MEDS: DULoxetine HCL 60 MG CAPSULE PO SCH (09:12)
[2025-09-11] MEDS: POLYETHYLENE GLYCOL 3350 17 GM PACKET PO SCH (09:14)
[2025-09-11 15:30] VITALS: BP 114/74; PULSE 87; RESP 18; TEMP 97.8; O2SAT 97
[2025-09-11 19:49] VITALS: BP 102/72; PULSE 84; RESP 18; TEMP 97.9; O2SAT 94
[2025-09-12 04:43] VITALS: BP 113/87; PULSE 69; RESP 18; TEMP 98.2; O2SAT 98
[2025-09-12 08:40] VITALS: BP 104/56; PULSE 90; RESP 18; TEMP 97.7; O2SAT 100
[2025-09-12 09:30] VITALS: BP 126/93; PULSE 95; RESP 22; TEMP 98.3; O2SAT 100
[2025-09-12] MEDS: NICOTINE 14 MG/24 HOUR PATCH TD SCH (14:49)
[2025-09-12 15:23] VITALS: BP 106/85; PULSE 97; RESP 18; TEMP 97.9; O2SAT 98
[2025-09-12 16:00] VITALS: BP 114/67; PULSE 102; RESP 20; TEMP 97.6; O2SAT 99
[2025-09-12 20:11] VITALS: BP 113/67; PULSE 76; RESP 18; TEMP 98.1; O2SAT 95
[2025-09-13 04:00] VITALS: BP 135/95; PULSE 97; RESP 18; TEMP 97.5; O2SAT 98
[2025-09-13 09:30] VITALS: BP 115/77; PULSE 88; RESP 20; TEMP 97.9; O2SAT 94
[2025-09-13] MEDS ORDERED: SODIUM CHLORIDE 0.9% 1,000 ML IV ONE (15:15)
[2025-09-13 15:30] VITALS: BP 93/70; PULSE 103; RESP 20; TEMP 98.2; O2SAT 96
[2025-09-13] MEDS: RINGERS SOLUTION,LACTATED 1,000 ML IV ONE (16:09)
[2025-09-13 20:00] VITALS: BP 121/74; PULSE 86; RESP 18; TEMP 99.1; O2SAT 95
[2025-09-14 02:19] VITALS: BP 100/60; PULSE 75
[2025-09-14 04:00] VITALS: BP 143/75; PULSE 99; RESP 18; TEMP 98.1; O2SAT 96
[2025-09-14 07:06] LABS: PLATELET COUNT (AUTO) 222 K/uL (150-450); RED BLOOD CELL COUNT(AUTO) 4.42 MIL/uL (4.50-5.90); RED CELL DISTRIBUTION WIDTH 14.6 % (11.5-14.5); WHITE BLOOD COUNT (AUTO) 4.8 K/uL (4.5-11.0)
[2025-09-14 07:14] LABS: CALCIUM, TOTAL 8.5 mg/dL (8.8-10.5); CREATININE 0.66 mg/dL (0.60-1.30); GLOMERULAR FILTR. RATE CALC > 60 mL/min (>60); GLUCOSE,RANDOM 80 mg/dL (70-110); SODIUM SERUM 142 mmol/L (136-145); UREA NITROGEN, BLOOD 18 mg/dL (7-18)
[2025-09-14 08:40] VITALS: BP 123/83; PULSE 100; RESP 20; TEMP 98.1; O2SAT 95
[2025-09-14 16:35] VITALS: BP 114/90; PULSE 109; RESP 20; TEMP 97.2; O2SAT 97
[2025-09-14] MEDS ORDERED: ERTA1VIA9 IVP (17:22)
== END 2025-09-14 21:34 | DRG 466 ==
LOC: EMS 09:42 → EDH 13:53 → 6S 16:41
PROVIDERS: ADMIT Internal Medicine; ATTEND Internal Medicine
DX: T83.518A Infection and inflammatory reaction due to other urinary catheter, initial encounter (principal); A41.9 Sepsis, unspecified organism; Y84.6 Urinary catheterization as the cause of abnormal reaction of the patient, or of later complication, without mention of misadventure at the time of the procedure; E11.9 Type 2 diabetes mellitus without complications; F17.200 Nicotine dependence, unspecified, uncomplicated; F31.9 Bipolar disorder, unspecified; G47.30 Sleep apnea, unspecified; G89.29 Other chronic pain; I95.9 Hypotension, unspecified; N39.0 Urinary tract infection, site not specified; Z86.19 Personal history of other infectious and parasitic diseases; Z88.2 Allergy status to sulfonamides; Z88.3 Allergy status to other anti-infective agents; Z88.5 Allergy status to narcotic agent; Z88.6 Allergy status to analgesic agent; Z79.899 Other long term (current) drug therapy; Q05.9 Spina bifida, unspecified
CPT/HCPCS: 36569; 76937; 80048; 80053; 80076; 81001; 82962; 83605; 83615; 83690; 83735; 84145; 85025; 85730; 87040; 87077; 87081; 87086; 87186; 96361; 96365; 96367; 96375; 99285; J1644; J2185; J2270; J2543; J7030; J7040; J7050; J7120; 36415-L1; 36415-TC